=== PATIENT | female | born 1950 | race Caucasian/White ===

== ENCOUNTER → 2017-10-07 | Outpatient (CLI) | payer OTHER | LOC: MC.RAD 13:46 | DX: Z12.31 Encounter for screening mammogram for malignant neoplasm of breast (principal) ==

== ENCOUNTER → 2018-10-10 | Outpatient (CLI) | payer MEDICARE, OTHER | LOC: MC.RAD 14:50 | DX: Z12.31 Encounter for screening mammogram for malignant neoplasm of breast (principal) ==

== ENCOUNTER 2019-02-14 11:13 | Emergency (ER) | payer MEDICARE, OTHER ==
[~2019-02-14] VITALS: Ht 154.9 cm; Wt 61.4 kg
[2019-02-14 11:19] VITALS: BP 164/73; TEMP 98
[2019-02-14] MEDS ORDERED: AMOXICILLIN875 MG PO (11:29)
[2019-02-14] MEDS ORDERED: ULTRAM 50MG TAB50 MG PO (11:30)
[2019-02-14] MEDS ORDERED: LEVOXYL0.05 MG PO (11:30)
[2019-02-14] MEDS ORDERED: ZOCOR 40MG40 MG PO (11:30)
[2019-02-14 13:20] VITALS: PULSE 85
== END 2019-02-14 13:20 | disposition home or self-care (01) ==
LOC: COL.ER 11:13
DX: S02.2XXA Fracture of nasal bones, initial encounter for closed fracture (principal); I10 Essential (primary) hypertension; E11.9 Type 2 diabetes mellitus without complications; Z88.2 Allergy status to sulfonamides; W01.0XXA Fall on same level from slipping, tripping and stumbling without subsequent striking against object, initial encounter; Y92.59 Other trade areas as the place of occurrence of the external cause

== ENCOUNTER → 2019-10-13 | Outpatient (CLI) | payer MEDICARE ==
[~2019-10-13] MED LIST: AMOXICILLIN875 MG PO; LEVOXYL0.05 MG PO; ULTRAM 50MG TAB50 MG PO; ZOCOR 40MG40 MG PO
== END ==
LOC: MC.RAD 10-12 10:00
DX: Z12.31 Encounter for screening mammogram for malignant neoplasm of breast (principal)

== ENCOUNTER → 2020-10-07 | Outpatient (CLI) | payer MEDICARE | LOC: MC.RAD 10:05 | DX: Z12.31 Encounter for screening mammogram for malignant neoplasm of breast (principal) ==

== ENCOUNTER → 2021-10-09 | Outpatient (CLI) | payer MEDICARE | LOC: MC.RAD 08:49 | DX: Z12.31 Encounter for screening mammogram for malignant neoplasm of breast (principal) ==

== ENCOUNTER → 2022-07-13 | Outpatient (CLI) | payer MEDICARE | LOC: COL.RAD 14:51 | DX: Z87.442 Personal history of urinary calculi (principal) ==

== ENCOUNTER 2023-01-21 15:54 | Emergency (ER) | payer MEDICARE ==
[~2023-01-21] VITALS: Ht 152.4 cm; Wt 68.2 kg
[~2023-01-21 15:54] MED LIST changes: +ASPIRIN E.C. 8181 MG PO; +CAPOTEN 50MG50 MG PO; +COREG CR20 MG PO; +GLUCOPHAGE1000 MG PO; +GLUCOTROL XL2.5 MG PO; +MOBIC15 MG PO; +NORCO 325 MG-51 TAB PO; +PRILOSEC 20MG20 MG PO; +PRISTIQ 50 MG T50 MG PO; +TRESIBA100 UNIT/1 SQ; +TYLENOL 500MG500 MG PO
[2023-01-21 16:06] VITALS: TEMP 98.2
[2023-01-21 17:02] LABS: HEMATOCRIT 39.9 % (37.0-47.0); HEMOGLOBIN 13.1 g/dl (12.5-16.0); MEAN CELL VOLUME 98 fl (80.0-100.0); MEAN CORPUSCULAR HEMOGLOBIN 32 pg (27-31); MEAN CORPUSCULAR HGB CONC 33 g/dl (33.0-37.0); RED BLOOD COUNT 4.08 M/mm3 (4.10-5.30); REDCELL DISTRIBUTION WIDTH-CV 12.8 % (11.5-14.5)
[2023-01-21 17:21] LABS: ALBUMIN 3.4 gm/dL (3.4-4.8); BILIRUBIN,TOTAL 0.5 mg/dL (0.2-1.2); CALCIUM 9.6 mg/dL (8.4-10.2); CREATININE, serum 1.05 mg/dL (0.57-1.11); POTASSIUM 4.6 mmol/L (3.5-4.5); TOTAL PROTEIN 7.2 gm/dL (6.2-8.1)
[2023-01-21 17:35] LABS: BAND 10 % (0-10); LYMPHOCYTE 9 % (20.0-51.0); NEUTROPHILS 76 % (42.0-75.2); PLATELET ESTIMATE INCREASED (NORMAL)
[2023-01-21 17:36] LABS: PLATELET COUNT 388 K/mm3 (130-400)
[2023-01-21 19:02] VITALS: BP 155/85; PULSE 97
== END 2023-01-21 19:18 | disposition home or self-care (01) ==
LOC: COL.ER 15:54
PROVIDERS: Emergency Medicine
DX: E86.0 Dehydration (principal); E11.65 Type 2 diabetes mellitus with hyperglycemia; M96.89 Other intraoperative and postprocedural complications and disorders of the musculoskeletal system; R11.2 Nausea with vomiting, unspecified; D72.829 Elevated white blood cell count, unspecified; R79.81 Abnormal blood-gas level; Z79.84 Long term (current) use of oral hypoglycemic drugs; Z96.652 Presence of left artificial knee joint; Z28.310 Unvaccinated for COVID-19
CPT/HCPCS: J1815; J2405; J3010; J7030; J7040

== ENCOUNTER 2023-01-23 04:23 | Inpatient (IN) | payer MEDICARE ==
[~2023-01-23] VITALS: Ht 154.9 cm; Wt 68.2 kg
[2023-01-23 04:45] LABS: BASO # 0.1 K/mm3 (0.0-0.2); BASO % 0.5 % (0.0-2.0); EOS # 0.1 K/mm3 (0.0-0.7); EOS % 0.6 % (0.0-4.0); GRAN # 10.7 K/mm3 (1.4-6.5); GRAN % 79.4 % (42.2-75.2); HEMATOCRIT 37.8 % (37.0-47.0); HEMOGLOBIN 12.1 g/dl (12.5-16.0); LYMPH # 1.1 K/mm3 (1.2-3.4); LYMPH % 8.1 % (20.0-51.0); MEAN CELL VOLUME 98 fl (80.0-100.0); MEAN CORPUSCULAR HEMOGLOBIN 31 pg (27-31); MEAN CORPUSCULAR HGB CONC 32 g/dl (33.0-37.0); MONO # 1.5 K/mm3 (0.1-0.6); PLATELET COUNT 402 K/mm3 (130-400); RED BLOOD COUNT 3.86 M/mm3 (4.10-5.30)
[2023-01-23 04:57] LABS: ACETONE,SERUM MODERATE
[2023-01-23 04:59] LABS: COLLECTION METHOD CLEAN CATCH
[2023-01-23 05:05] LABS: MUCOUS Present (NOT PRESENT); SQUAMOUS EPITHELIAL 0-2 /hpf (0-10); URINE BACTERIA None Seen /hpf (NONE SEEN); URINE RBC None Seen /hpf (0-2)
[2023-01-23 05:06] LABS: PH 5.5 (5.0-8.5); URINE APPEARANCE Clear (CLEAR/HAZY); URINE BLOOD TRACE-INTACT (NEGATIVE); URINE COLOR Yellow (YELLOW); URINE GLUCOSE 2+ (NEGATIVE); URINE KETONE 4+ (NEGATIVE); URINE NITRATE Negative (NEGATIVE); URINE PROTEIN(semi-quant) 1+ (NEGATIVE); URINE UROBILINOGEN 0.2 E.U/dL (0.2-1.0)
[2023-01-23 05:12] LABS: ALANINE AMINOTRANSFERASE 19 U/L (0-55); ALBUMIN 2.9 gm/dL (3.4-4.8); ALKALINE PHOSPHATASE 101 U/L (40-150); ANION GAP 17 mmol/L (7-16); AST,SGOT 11 U/L (5-34); BILIRUBIN,TOTAL 0.4 mg/dL (0.2-1.2); BLOOD UREA NITROGEN 19 mg/dL (10-20); CALCIUM 10.5 mg/dL (8.4-10.2); CHLORIDE 103 mmol/L (98-107); CREATININE, serum 1.33 mg/dL (0.57-1.11); GLUCOSE 383 mg/dL (70-99); LIPASE 11 U/L (8-78); POTASSIUM 4.8 mmol/L (3.5-4.5); SODIUM 130 mmol/L (136-145); TOTAL PROTEIN 6.7 gm/dL (6.2-8.1)
[2023-01-23 05:14] LABS: CARBON DIOXIDE 10 mmol/L (23-31)
[2023-01-23 05:32] LABS: TSH w REFLEX 1.638 uIU/mL (0.350-4.940)
[2023-01-23 05:36] LABS: TROPONIN-I < 0.010 ng/mL (0.00-0.033)
[2023-01-23] MEDS ORDERED: TYMLOS1.56 ML IJ (06:35)
[2023-01-23] MEDS ORDERED: B-12 500 MCG (06:36)
[2023-01-23] MEDS ORDERED: MASON NATURAL2000 IU PO (06:37)
[2023-01-23] MEDS ORDERED: FLONASE SENSIM9.9 ML NS (06:38)
[2023-01-23] MEDS ORDERED: NATURAL MAGNES200 MG PO (06:40)
[2023-01-23] MEDS ORDERED: MIRALAX PA17 GM/Dose PO (06:43)
[2023-01-23] MEDS ORDERED: ZOFRAN ODT4 MG PO (06:44)
[2023-01-23 08:31] VITALS: BP 126/51; PULSE 111; TEMP 97.5
[2023-01-23] MEDS ORDERED: VITAMIN C500 MG PO (09:01)
--- NOTE | 2023-01-23 10:00 | NUR ---
PT recently up from ED. Pt is alert and oriented although she is slow to answer. When she arrived to the floor, assisted her to the restroom. She was slow at moving, but improved during transfer. Left knee is stiff, encouraged her to bend her knee as much as she can when walking as she was trying to keep it straight. Family stated that she appears to be a little more perky now than when they first brought her in. IVf to IV in right AC. Bed alarm on.
[2023-01-23] MEDS ORDERED: COREG 6.256.25 MG/TA PO (10:29)
[2023-01-23] MEDS ORDERED: LYRICA 75MG CAP75 MG PO (10:37)
[2023-01-23 11:16] VITALS: BP 117/54; PULSE 108; TEMP 98.7
--- NOTE | 2023-01-23 12:04 | NUR ---
Painter Decorator rounds: Painter Decorator visit attempted. Patient declined.
[2023-01-23 12:37] LABS: CALCIUM 9.8 mg/dL (8.4-10.2); CREATININE, serum 1.13 mg/dL (0.57-1.11); MAGNESIUM 1.5 mg/dL (1.6-2.6); POTASSIUM 4.3 mmol/L (3.5-4.5)
--- NOTE | 2023-01-23 14:00 | NUR ---
Pt using commode as she is having complaints of pain when trying to bend the left knee. Encouraged pt to work on heel slides while in bed to start bending her knee. Pt does have bruising to her left thigh and bruising to left knee. Pt continues to answer most questions appropriately, but does struggle with following commands. When asking her to do something, i have to repeat myself several times. Bed alarm on, call light within reach
[2023-01-23 15:25] VITALS: BP 134/52; PULSE 105; TEMP 98.6
--- NOTE | 2023-01-23 16:26 | NUR ---
Construction Controller met with patient for intake assessment/discharge planning. Patient presents alert and is oriented X 3, she is able to respond to assessment inquiries though requires some repetition and demonstrates a slowed response. He states she lives in [place], [place], in a 1-story home. She reports no use of DME and/or oxygen and she has been independent in her ADLs/IADLs, up to this point. She is aware of her confusion/altered mental status, becoming tearful stating, "This is not me." She does not know what is happening to her to be confused. Patient's primary care physician is Dr. Mark Brannon and she obtains her medications without difficulty at [facility]. She struggles to find her daughter's telephone contact in her phone, Ivette Garay. She states, "I can't find it." She does not wish for help at this time to search her phone. She states she does have a Brise[employer]da system for blood sugar monitoring at home. Patient is unable to identify any needs for discharge at this time, "I don't know. I can't think right now." She expresses frustration as she is employed and educated. Shelia ECHOLS is updated. *Discharge plan: re-assess patient for identified needs upon medical clearance*
[2023-01-23 18:05] LABS: CALCIUM 8.7 mg/dL (8.4-10.2); CREATININE, serum 0.91 mg/dL (0.57-1.11); POTASSIUM 3.4 mmol/L (3.5-4.5)
--- NOTE | 2023-01-23 18:22 | NUR ---
Pt is at bedside now. Pt using commode as she is weak and tires quickly. Pt did walk to the sink and brush her teeth. Pt still not completely comprehending what is asked of her. Have to repeat myself and demonstrate sometimes what i am asking of her. I have been ordering small more frequent meals for her and she has been tolerating her meals
--- NOTE | 2023-01-23 19:50 | NUR ---
PT ASSISTED TO BSC WITH 1 ASSIST/GAIT BELT/WALKER, DOES FAIR. NEEDS CUEING TO MOVE LEFT LEG AND HOW TO SIT ON BSC. VOIDS AND BACK TO BED. LEFT KNEE WITH AQUACEL DRSG D/I. MILD EDEMA NOTED TO LT KNEE. PLACED NEW ICE PACK ON SITE. HAS IVF AT 250CC/HR TO RAC, INFUSING WITHOUT REDNESS OR SWELLING. PT ASKS FOR A CATHETER, EDUCATED ON IMPORTANCE OF PREVENTING INFECTION AND MOBILITY, VERBALIZED UNDERSTANDING. TAKES SCHEDULED ES TYLENOL WITHOUT PROBLEM.
[2023-01-23 20:00] VITALS: BP 137/54; PULSE 100; PULSE 144; TEMP 99
--- NOTE | 2023-01-23 22:45 | NUR ---
PLACED ON TELEMETRY, STARTED K+ PROTOCOL.
--- NOTE | 2023-01-23 23:00 | NUR ---
PT ASSISTED TO BSC, MORE AWAKE AND TRANSFERS SLOWLY WITH 1 ASSIST. VOIDS AND BACK TO BED.
[2023-01-23 23:56] VITALS: BP 131/68; PULSE 99; TEMP 98.8
[2023-01-24 00:35] LABS: CREATININE, serum 0.75 mg/dL (0.57-1.11); POTASSIUM 3.8 mmol/L (3.5-4.5)
--- NOTE | 2023-01-24 03:35 | NUR ---
PT ASSISTED TO BSC WITH ONE ASSIST/GAIT BELT/WALKER. DOES WELL, SLOW AND STEADY. PT IS MORE AWAKE AND IS MOVING MUCH BETTER THAN BEGINNING OF SHIFT. PT REPORTS MINIMAL PAIN TO LEFT KNEE, ONLY WITH ACTIVITY. IVF CONTINUE WITH POTASSIUM REPLACEMENT TO RAC, SITE WITHOUT REDNESS OR SWELLING. BACK TO BED. VOIDS LIGHT YELLOW URINE.
[2023-01-24 03:50] VITALS: BP 128/56; PULSE 97; TEMP 97.9
--- NOTE | 2023-01-24 05:06 | NUR ---
PT ASSISTED TO BSC WITH ONE ASSIST, VOIDS AND BACK TO BED. DENIES NEED FOR PAIN MEDS AT THIS TIME. POTASSIUM REPLACEMENT COMPLETE. IVF TO RAC INFUSING AT 250CC/HR.
[2023-01-24 06:23] LABS: BASO # 0.1 K/mm3 (0.0-0.2); BASO % 0.7 % (0.0-2.0); EOS # 0.2 K/mm3 (0.0-0.7); GRAN # 5.2 K/mm3 (1.4-6.5); LYMPH # 1.1 K/mm3 (1.2-3.4); LYMPH % 14.8 % (20.0-51.0); MEAN CELL VOLUME 94 fl (80.0-100.0); MEAN CORPUSCULAR HGB CONC 33 g/dl (33.0-37.0); MEAN PLATELET VOLUME 9.2 fl (7.4-10.4); MONO # 0.9 K/mm3 (0.1-0.6); MONO % 12.1 % (1.7-9.3); PLATELET COUNT 356 K/mm3 (130-400); REDCELL DISTRIBUTION WIDTH-CV 13.2 % (11.5-14.5)
[2023-01-24 06:37] LABS: CALCIUM 8.1 mg/dL (8.4-10.2); CREATININE, serum 0.71 mg/dL (0.57-1.11); MAGNESIUM 2.1 mg/dL (1.6-2.6); POTASSIUM 4.1 mmol/L (3.5-4.5)
[2023-01-24 06:39] LABS: HEMATOCRIT 28.2 % (37.0-47.0); MEAN CORPUSCULAR HEMOGLOBIN 31 pg (27-31)
[2023-01-24 06:40] LABS: HEMOGLOBIN 9.4 g/dl (12.5-16.0)
[2023-01-24 07:09] VITALS: BP 135/65; PULSE 93; TEMP 98.3
--- NOTE | 2023-01-24 07:21 | NUR ---
Pt appears to be doing much better than yesterday. She is following directions and is getting up out of bed easier. Assisted pt to the commode, voided without difficulty. Assisted with ordering breakfast
--- NOTE | 2023-01-24 07:37 | NUR ---
Pt blood sugar 67, pct gave pt orange juice per pt request. Will recheck bs prior to giving the glucose tabs since she had the orange juice.
--- NOTE | 2023-01-24 11:10 | NUR ---
Pt continues to improve. PT has been in and worked with her. Pts spouse is at bedside at this time, gave him an update. Dr Campos in to see pt, IVF decreased per order. Pt ambulating to the restroom now with one assist. Pt tolerable
[2023-01-24 11:30] VITALS: BP 158/64; PULSE 94; TEMP 98.2
[2023-01-24 15:16] VITALS: BP 152/64; PULSE 98; TEMP 98.9
--- NOTE | 2023-01-24 18:00 | NUR ---
Pt has continued to improve throughout the afternoon. Some things she is still forgetful on and she does get her words mixed up at times. When this happens, she does correct herself right away. Spouse has been here most of the afternoon as well as several other visitors. Pt tolerating her food although she is not eating much at a time. She is ambulating to the restroom using a walker. No needs, will continue to monitor
[2023-01-24 20:17] VITALS: BP 146/69; PULSE 100; TEMP 98.8
--- NOTE | 2023-01-24 23:22 | NUR ---
PT REPORTS FEELING LIKE SHE HAS A LOW BLOOD SUGAR, SHE IS SWEATY. BS=39. GIVEN IV DEXTROSE 12.5GM NOW.
--- NOTE | 2023-01-24 23:51 | NUR ---
REPEAT BS=95MG/DL. PT HAS BEEN UP TO BATHROOM, VOIDS AND BACK TO BED. GAIT STEADY. SIGNIFICANT BRUISING TO LT INNER THIGH TO CALF. RESTARTED IV SITE TO LT WRIST, #20 INSYTE ON FIRST ATTEMPT. DC'D RAC SITE, ANGIOCATH INTACT. IVF INFUSING AT 150CC/HR. PT FEELS BETTER. DID DRINK AN ORANGE JUICE PER HER REQUEST.
[2023-01-25] VITALS (7 sets, daily range): BP systolic 135–161; BP diastolic 62–87; PULSE 83–100; TEMP 97.9–98.7
--- NOTE | 2023-01-25 01:00 | NUR ---
PT DEXCOM ALERTING, PT ASKING FOR OJ AND PEANUT BUTTER FOR LOW READING OF 66 ON HER MONITOR. IVF INFUSING TO LFA WITHOUT PROBLEM. VOIDING WELL, GAIT STEADY WITH WALKER AND ASSIST OF 1.
--- NOTE | 2023-01-25 06:00 | NUR ---
PT BLOOD SUGAR NORMALIZED. PT ASSISTED TO BATHROOM, VOIDS AND BACK TO BED. SCHEDULED AM MEDS GIVEN.
[2023-01-25 06:44] LABS: CALCIUM 8.5 mg/dL (8.4-10.2); CREATININE, serum 0.6 mg/dL (0.57-1.11); MAGNESIUM 1.5 mg/dL (1.6-2.6); POTASSIUM 3.3 mmol/L (3.5-4.5)
--- NOTE | 2023-01-25 10:04 | NUR ---
Initial visit; Patient talked and was receptive to Microbiology Lab Manager visit. Patient thanked Microbiology Lab Manager for her honesty and for keeping her in her prayers. Microbiology Lab Manager mentioned it is a blessing for her to do what she does; especially meeting good people.
--- NOTE | 2023-01-25 10:10 | NUR ---
PT WORKING WITH THERAPY THIS AM. POSSIBLE DISCHARGE LATER TODAY. DRESSING TO LEFT KNEE CDI. UP TO SHOWER WITH ASSIST. PT TOLERATING WELL.
--- NOTE | 2023-01-25 12:41 | NUR ---
Process Automation Engineer met with patient to follow up on discharge plan. Patient plans to return home at time of discharge with her , Good. DEMARCO discussed Home Health services with patient who advised she may need these services, but would like to speak with Good about it first before deciding. DEMARCO provided Medicare.gov list of HH agencies that serve her area. Discharge Plan: Home with HH
--- NOTE | 2023-01-25 16:28 | NUR ---
Patient requested to meet with Shoe Caser to discuss discharge plan. Patient advised her children thought she needed to look into SNF. SW provided Medicare.gov list of SNFs for patient and she advised she would review this with her and talk with SW in the morning.
[2023-01-26 03:21] VITALS: BP 160/80; PULSE 90; TEMP 97.6
--- NOTE | 2023-01-26 06:27 | NUR ---
pt alert and oriented x4, pain controlled with scheduled tylenol and prn oxycodone. HS BGM 107, levemir held. up to restroom with walker and SBA.
[2023-01-26 07:11] LABS: BASO # 0.1 K/mm3 (0.0-0.2); BASO % 0.8 % (0.0-2.0); EOS # 0.2 K/mm3 (0.0-0.7); EOS % 2.6 % (0.0-4.0); GRAN # 4.7 K/mm3 (1.4-6.5); HEMOGLOBIN 10.3 g/dl (12.5-16.0); LYMPH # 1.5 K/mm3 (1.2-3.4); LYMPH % 20.7 % (20.0-51.0); MEAN CELL VOLUME 95 fl (80.0-100.0); MEAN CORPUSCULAR HEMOGLOBIN 31 pg (27-31); MEAN CORPUSCULAR HGB CONC 33 g/dl (33.0-37.0); MEAN PLATELET VOLUME 9.2 fl (7.4-10.4); MONO # 0.7 K/mm3 (0.1-0.6); MONO % 10.2 % (1.7-9.3); PLATELET COUNT 438 K/mm3 (130-400); RED BLOOD COUNT 3.31 M/mm3 (4.10-5.30); REDCELL DISTRIBUTION WIDTH-CV 13.4 % (11.5-14.5)
[2023-01-26 07:19] LABS: HEMATOCRIT 31.4 % (37.0-47.0)
--- NOTE | 2023-01-26 07:29 | NUR ---
Received shift report from the night nurse, Fabi ECHOLS.
[2023-01-26 07:31] LABS: CALCIUM 8.6 mg/dL (8.4-10.2); CREATININE, serum 0.67 mg/dL (0.57-1.11); MAGNESIUM 1.6 mg/dL (1.6-2.6); POTASSIUM 3.3 mmol/L (3.5-4.5)
[2023-01-26 08:00] VITALS: BP 156/69; PULSE 87; TEMP 98
--- NOTE | 2023-01-26 10:22 | NUR ---
Patient sitting up in a recliner next to bed. Patient alert and oriented. Dressing to left knee intact. Pulses present. Patient denies pain at this time. Family at the bedside. See process intervention for notes.
[2023-01-26] MEDS ORDERED: ASPI325T6 PO (11:05)
[2023-01-26 12:00] VITALS: BP 160/72; PULSE 81; TEMP 97.8
--- NOTE | 2023-01-26 14:19 | NUR ---
On 01/25/23, Profiling Machine Setup Operator took a call from patient's daughter, Sandra who requested SNF placement and advised [facility]. DEMARCO met with patient and her spouse, Good on 01/26/23 before rounding and confirmed the above. Patient stated she was open to sending additional referrals to [facility] and [facility] as second preferences. DEMARCO faxed referrals to [facility], [facility], and [facility]. Deanna at [facility] reviewed referral and advised her team can accept. DEMARCO updated Hospitalist who is ready to discharge patient today. DEMARCO faxed discharge orders to Deanna and transport time was set for 1330. DEMARCO met with patient to provide transport time and to review IM. Patient verbalized understanding of IM and provided signature. DEMARCO placed form in chart and gave copy to patient. DEMARCO contacted patient's daughter, Sandra to update on discharge plan and transport time. Sandra expressed that she is happy with this plan. Discharge Plan: [facility]
--- NOTE | 2023-01-26 15:37 | NUR ---
Patient transfered to [facility]. INT and tele monitor discontinued. Report given to the nurse at facility, and has no other questions.
== END 2023-01-26 13:30 | DRG 637 ==
LOC: COL.ER 04:23 → SURG 06:28
PROVIDERS: Emergency Medicine; Physician Assistant; ADMIT Internal Medicine
DX: E11.10 Type 2 diabetes mellitus with ketoacidosis without coma (principal); G93.41 Metabolic encephalopathy; N17.9 Acute kidney failure, unspecified; Z96.652 Presence of left artificial knee joint; E83.42 Hypomagnesemia; T41.45XA Adverse effect of unspecified anesthetic, initial encounter; T50.995A Adverse effect of other drugs, medicaments and biological substances, initial encounter; E11.65 Type 2 diabetes mellitus with hyperglycemia; I10 Essential (primary) hypertension; E03.9 Hypothyroidism, unspecified; D64.9 Anemia, unspecified; Z20.822 Contact with and (suspected) exposure to COVID-19; E87.6 Hypokalemia; Z90.710 Acquired absence of both cervix and uterus; Z90.49 Acquired absence of other specified parts of digestive tract; Z90.89 Acquired absence of other organs; Z88.0 Allergy status to penicillin; Z88.2 Allergy status to sulfonamides; Z88.8 Allergy status to other drugs, medicaments and biological substances; Z79.82 Long term (current) use of aspirin; Z79.4 Long term (current) use of insulin; Z79.899 Other long term (current) drug therapy; Z79.890 Hormone replacement therapy; Z23 Encounter for immunization
CPT/HCPCS: J1650; J1815; J3475; J3480; J7030; J7120